=== PATIENT | female | born 1960 ===

== ENCOUNTER 2022-07-03 10:17 | Inpatient (IN) | payer OTHER ==
[~2022-07-03] VITALS: Ht 149.9 cm; Wt 90.7 kg
[2022-07-04] MEDS ORDERED: JANUVIA100 MG PO (09:59)
[2022-07-04] MEDS ORDERED: AVAPRO150 MG PO (15:53)
[2022-07-04] MEDS ORDERED: GLIM PO (15:53)
[2022-07-04] MEDS ORDERED: ZOLOFT100 MG PO (15:54)
[2022-07-04] MEDS ORDERED: AMITRIPTYLINE H50 MG PO (15:54)
[2022-07-04] MEDS ORDERED: OMEPRAZOLE MAGN20 MG PO (15:55)
[2022-07-04] MEDS ORDERED: LIPIT PO (15:55)
[2022-07-04] MEDS ORDERED: DICLOFENAC-MIS1 EAC3 PO (15:55)
[2022-07-04] MEDS ORDERED: CALTRATE 600+D1 EAC1 PO (15:56)
[2022-07-09] MEDS ORDERED: OMEPRAZOLE20 MG (11:34)
[2022-07-09] MEDS ORDERED: ATORVASTATIN CA20 MG (11:34)
[2022-07-09] MEDS ORDERED: BUDESONIDE-FO10.2 G1 (11:34)
[2022-07-09] MEDS ORDERED: DICLOFENAC SODI75 MG (11:34)
[2022-07-09] MEDS ORDERED: BUSPIRONE HCL5 MG (11:34)
[2022-07-09] MEDS ORDERED: GLIMEPIRIDE2 M1 (11:34)
== END 2022-07-12 11:42 | DRG 470 ==
LOC: SURG 07-09 08:18 → O/R 07-09 08:18 → SURG 07-09 10:00
PROVIDERS: ADMIT Orthopaedic Surgery; ATTEND Orthopaedic Surgery
PROC: 0SRC0J9 Replacement of Right Knee Joint with Synthetic Substitute, Cemented, Open Approach (ICD-10-PCS; principal; 2022-07-09 10:00)
DX: M17.11 Unilateral primary osteoarthritis, right knee (principal); D62 Acute posthemorrhagic anemia; Z68.41 Body mass index [BMI] 40.0-44.9, adult; E66.9 Obesity, unspecified; M79.7 Fibromyalgia; I10 Essential (primary) hypertension; E11.9 Type 2 diabetes mellitus without complications; E78.00 Pure hypercholesterolemia, unspecified; Z96.651 Presence of right artificial knee joint; J45.909 Unspecified asthma, uncomplicated